=== PATIENT | male | born 1955 | race African-American/Black ===

== ENCOUNTER 2018-05-07 10:37 | Emergency (ER) | payer OTHER ==
[2018-05-07 10:45] VITALS: TEMP 36.7; Ht 167.6 cm
[2018-05-07] MEDS ORDERED: SODIUM CHLORIDE 0.9% 1000ML 1,000 ML IV STA (11:01)
[2018-05-07] MEDS ORDERED: ONDANSETRON INJ 2 MG/ML 2 ML VIAL IV STA (11:01)
[2018-05-07] MEDS ORDERED: MoRPHine SULFATE 2 MG/ML CARP IV STA (11:01)
[2018-05-07] MEDS ORDERED: SODIUM CHLORIDE 0.9% 500ML 500 ML IV STA (11:01)
--- NOTE | 2018-05-07 11:06 | EMERGENCY ROOM VISIT NOTE ---
History Report prepared by [place]: Beena Grijalva Under the Supervision of: Dr. Alexandra Matson M.D. First contact with patient: 10:49 Chief Complaint: ABDOMINAL PAIN Stated Complaint: VOMITING,ABDOMINAL PAIN History of Present Illness The patient is a 62 year old male who presents to the Emergency Room with complaints of persistent vomiting beginning recently. He notes he was due for emergency hernia surgery with Dr. Temple yesterday, but missed the surgery as he was recently incarcerated. The patient reports he has a history of hernias and has needed surgical repairs in the past, and his current symptoms feel similar to those past hernias. He states he is vomiting and having bowel movements at the same time, and his symptoms are worsening every day. He reports his bowel movements begin solid but become diarrhea as the day goes on. The patient notes he began throwing up bile recently and he has difficulty walking due to his pain. He denies a history of diabetes or other medical problems. Source of History: patient Onset: recently Position: abdomen Quality: other (vomiting) Timing: worsening, other (persistent) Associated Symptoms: + abdominal pain Note: Associated symptoms: frequent bowel movements, difficulty walking Review of Systems See HPI for pertinent positives & negatives. A total of 10 systems reviewed and were otherwise negative. Past Medical & Surgical Surgical Problems: (1) History of hernia surgery Vomiting and diarrhea Family History No pertinent family history stated. Social History Smoking Status: Never Smoker Housing Status: other ([facility]) Occupation Status: other (inmate) Physical Exam Vital Signs Date Time Temp Pulse Resp B/P (MAP) Pulse Ox O2 Delivery O2 Flow Rate FiO2 05/07/18 14:25 64 16 125/72 98 05/07/18 13:22 62 16 130/76 100 Room Air 05/07/18 12:21 65 16 146/93 100 Room Air 05/07/18 12:11 57 05/07/18 11:23 66 16 144/94 98 Room Air 05/07/18 10:45 36.7 83 18 111/80 99 Room Air Physical Exam Vital signs reviewed. General: Well-appearing man, in no significant distress. HEENT: No scleral icterus, PERRLA, neck supple. Atraumatic. Cardiovascular: Regular rate and rhythm, no extra sounds. Pulmonary: Clear to auscultation bilaterally, normal work of breathing. Abdomen: Soft, nontender, nondistended, positive bowel sounds. No appreciable inguinal hernia bilaterally. Epigastric rectus sheath defect without bulge. Musculoskeletal: Atraumatic, no peripheral edema. Neurologic: Patient awake alert and oriented x 3 Skin: Warm, dry, no rash Medical Decision & Procedures ER Provider Diagnostic Interpretation: Radiology results as stated below per my review and radiologist interpretation: CT ABD/PELVIS IV AND ORAL CONT CLINICAL HISTORY: Vomiting, hiatal hernia. Possible small bowel obstruction. COMPARISON STUDY: None. TECHNIQUE: Following the IV administration of 119 mL of Optiray-320, CT scan of the abdomen and pelvis was performed from the lung bases to the proximal femurs. Images are reviewed in the axial, sagittal, and coronal planes. IV contrast was administered without complication. A dose lowering technique was utilized adhering to the principles of ALARA. CT DOSE: 225.52 mGycm FINDINGS: Lower chest: There is pulmonary emphysema. Liver: The contrast-enhanced liver is normal in size, contour, and attenuation. There is no intrahepatic biliary ductal dilatation. The hepatic veins and portal veins are patent. Gallbladder: Unremarkable. Spleen: Normal in size and attenuation. Pancreas: There is mild pancreatic ductal dilatation. There is no common bile duct dilatation. No pancreatic masses are visualized on CT scanning. Adrenal glands: Unremarkable. Kidneys: There is symmetric renal cortical enhancement. The kidneys are normal in size without hydronephrosis. Bowel: There are no transition zones to indicate bowel obstruction. There is a moderate amount of stool present within the left colon. There is no acute diverticulitis. The appendix is difficult to visualize with certainty. There are no findings to indicate acute appendicitis. Peritoneum: There is no intraperitoneal free air or abdominal ascites. There is rectus diastases. Vasculature: The abdominal aorta is normal in course and caliber. Adenopathy: None. Pelvic viscera: The bladder, and pelvic viscera are unremarkable. Skeletal structures: No destructive osseous lesions are seen. IMPRESSION: 1. No evidence of bowel obstruction. No evidence of free air 2. Rectus diastases 3. Moderate left colonic stool 4. No acute inflammatory changes 5. Mild pancreatic ductal dilatation. No evidence of common bile duct dilatation. No pancreatic masses are visualized on CT scanning. Electronically signed by: Randal Byers M.D. 05/07/2018 1:45 PM Dictated Date/Time: 05/07/2018 1:40 PM Laboratory Results 05/07/18 11:14 Red Blood Count 5.76, Mean Corpuscular Volume 84.9, Mean Corpuscular Hemoglobin 29.3, Mean Corpuscular Hemoglobin Concent 34.6, Mean Platelet Volume 9.1, Neutrophils (%) (Auto) 76.0, Lymphocytes (%) (Auto) 17.6, Monocytes (%) (Auto) 5.2, Eosinophils (%) (Auto) 0.4, Basophils (%) (Auto) 0.3, Neutrophils # (Auto) 10.43, Lymphocytes # (Auto) 2.41, Monocytes # (Auto) 0.72, Eosinophils # (Auto) 0.05, Basophils # (Auto) 0.04 05/07/18 11:14 Test 05/07/18 11:14 05/07/18 12:21 White Blood Count 13.72 K/uL (4.8-10.8) Red Blood Count 5.76 M/uL (4.7-6.1) Hemoglobin 16.9 g/dL (14.0-18.0) Hematocrit 48.9 % (42-52) Mean Corpuscular Volume 84.9 fL (80-100) Mean Corpuscular Hemoglobin 29.3 pg (25-34) Mean Corpuscular Hemoglobin Concent 34.6 g/dl (32-36) Platelet Count 256 K/uL (130-400) Mean Platelet Volume 9.1 fL (7.4-10.4) Neutrophils (%) (Auto) 76.0 % Lymphocytes (%) (Auto) 17.6 % Monocytes (%) (Auto) 5.2 % Eosinophils (%) (Auto) 0.4 % Basophils (%) (Auto) 0.3 % Neutrophils # (Auto) 10.43 K/uL (1.4-6.5) Lymphocytes # (Auto) 2.41 K/uL (1.2-3.4) Monocytes # (Auto) 0.72 K/uL (0.11-0.59) Eosinophils # (Auto) 0.05 K/uL (0-0.5) Basophils # (Auto) 0.04 K/uL (0-0.2) RDW Standard Deviation 39.2 fL (36.4-46.3) RDW Coefficient of Variation 12.8 % (11.5-14.5) Immature Granulocyte % (Auto) 0.5 % Immature Granulocyte # (Auto) 0.07 K/uL (0.00-0.02) Anion Gap 5.0 mmol/L (3-11) Estimated GFR () 75.1 Estimated GFR (Non- 64.8 BUN/Creatinine Ratio 16.5 (10-20) Calcium Level 9.9 mg/dl (8.5-10.1) Magnesium Level 2.6 mg/dl (1.8-2.4) Total Bilirubin 0.6 mg/dl (0.2-1) Direct Bilirubin 0.2 mg/dl (0-0.2) Aspartate Amino Transf (AST/SGOT) 26 U/L (15-37) Alanine Aminotransferase (ALT/SGPT) 51 U/L (12-78) Alkaline Phosphatase 114 U/L (45-117) Total Protein 8.1 gm/dl (6.4-8.2) Albumin 4.4 gm/dl (3.4-5.0) Lipase 273 U/L (73-393) Urine Color YELLOW Urine Appearance CLEAR (CLEAR) Urine pH 7.0 (4.5-7.5) Urine Specific [place] 1.014 (1.000-1.030) Urine Protein NEG (NEG) Urine Glucose (UA) NEG (NEG) Urine Ketones NEG (NEG) Urine Occult Blood NEG (NEG) Urine Nitrite NEG (NEG) Urine Bilirubin NEG (NEG) Urine Urobilinogen NEG (NEG) Urine Leukocyte Esterase NEG (NEG) Laboratory results per my review. Medications Administered Medications (Trade) Dose Ordered Sig/Avril Route Start Time Stop Time Status Last Admin Dose Admin Sodium Chloride 500 ml @ 999 mls/hr Q31M STAT IV 05/07/18 11:01 05/07/18 11:31 DC 05/07/18 11:24 999 MLS/HR Sodium Chloride 1,000 ml @ 150 mls/hr Q6H40M STAT IV 05/07/18 11:01 05/07/18 14:46 DC 05/07/18 11:24 150 MLS/HR Ondansetron HCl (Zofran Inj) 4 mg NOW STAT IV 05/07/18 11:01 05/07/18 11:06 DC 05/07/18 11:24 4 MG Morphine Sulfate (MoRPHine SULFATE INJ) 2 mg NOW STAT IV 05/07/18 11:01 05/07/18 11:06 DC 05/07/18 11:24 2 MG Hydromorphone HCl (Dilaudid Inj) 0.5 mg NOW STAT IV 05/07/18 13:19 05/07/18 13:20 DC 05/07/18 13:24 0.5 MG ED Course 1053: Past medical records reviewed. The patient was evaluated in room C6. A complete history and physical examination was performed. 1155: I reviewed the patient's medical records, which revealed a bilateral inguinal surgical repair planned for yesterday with Dr. Temple. 1348: Upon reevaluation, the patient appeared to have improvement of his symptoms. I discussed findings with him. He verbalized agreement of the treatment plan. The patient was discharged back to [facility]. Medical Decision Differential diagnosis: Etiologies such as gastroenteritis, food borne illness, infections, appendicitis , diverticulitis, inflammatory bowel disease, obstruction, GI bleed, biliary pathology, as well as others were entertained. This patient was evaluated and appeared to be in no significant distress. IV access was obtained and laboratory work was drawn. He was given 2 mg of IV morphine, 4 mg of Zofran and hydrated with normal saline solution. Laboratory work is fairly unrevealing. Physical examination reveals a defect along the rectus sheath midline. CT imaging of the abdomen was performed and reveals no evidence of active inguinal hernia or small bowel obstruction. There is a rectus diastases. Records from [facility] were obtained and confirm the patient' s story that he was to have surgery yesterday. There is no need for urgent intervention. He was advised to establish care with the [facility] physician and have a referral back to surgery to reschedule the appointment. There has been no further vomiting or diarrhea in the emergency department. He will return to the ED for worsening of symptoms or any medical concerns. Medication Reconcilliation Current Medication List: was personally reviewed by me Blood Pressure Screening Patient's blood pressure: Normal blood pressure Blood pressure disposition: Did not require urgent referral Impression Primary Impression: Vomiting and diarrhea Additional Impressions: Bilateral inguinal hernia Rectus diastasis Scribe Attestation The scribe's documentation has been prepared under my direction and personally reviewed by me in its entirety. I confirm that the note above accurately reflects all work, treatment, procedures, and medical decision making performed by me. Departure Information Dispostion Other ([facility]) Referrals No Doctor, Assigned (PCP) Forms Call Back Authorization, HOME CARE DOCUMENTATION FORM, IMPORTANT VISIT INFORMATION Patient Instructions My [facility] [place] Additional Instructions Diagnosis: Vomiting and diarrhea Please drink plenty of clear fluids. Follow-up with your surgeon to reschedule your elective procedure. Return to the ED for worsening of symptoms or any medical concerns. Problem Qualifiers
[2018-05-07] MEDS ORDERED: OPTIRAY 320 IV PRN (11:15)
[2018-05-07 11:32] LABS: BASO % 0.3 %; BASO ABS # 0.04 K/uL (0-0.2); EOS % 0.4 %; EOS ABS # 0.05 K/uL (0-0.5); HEMATOCRIT 48.9 % (42-52); HEMOGLOBIN 16.9 g/dL (14.0-18.0); IG# 0.07 K/uL (0.00-0.02); LYMPH % 17.6 %; LYMPH ABS # 2.41 K/uL (1.2-3.4); MEAN CELL VOLUME 84.9 fL (80-100); MEAN CORPUSCULAR HEMOGLOBIN 29.3 pg (25-34); MEAN CORPUSCULAR HGB CONC 34.6 g/dl (32-36); MEAN PLATELET VOLUME 9.1 fL (7.4-10.4); MONO % 5.2 %; MONO ABS # 0.72 K/uL (0.11-0.59); NEUT ABS # 10.43 K/uL (1.4-6.5); PLATELET COUNT 256 K/uL (130-400); RED CELL DISTRIBUTION WIDTH CV 12.8 % (11.5-14.5); RED CELL DISTRIBUTION WIDTH SD 39.2 fL (36.4-46.3); WHITE BLOOD COUNT 13.72 K/uL (4.8-10.8)
[2018-05-07 11:53] LABS: BLOOD UREA NITROGEN 20 mg/dl (7-18); CREATININE 1.18 mg/dl (0.60-1.40); GLUCOSE 133 mg/dl (70-99)
[2018-05-07 11:54] LABS: ALBUMIN 4.4 gm/dl (3.4-5.0); ALKALINE PHOSPHATASE 114 U/L (45-117); ALT/SGPT 51 U/L (12-78); AST/SGOT 26 U/L (15-37); CALCIUM 9.9 mg/dl (8.5-10.1); CARBON DIOXIDE 32 mmol/L (21-32); LIPASE 273 U/L (73-393); SODIUM 138 mmol/L (136-145); TOTAL PROTEIN 8.1 gm/dl (6.4-8.2)
[2018-05-07] MEDS ORDERED: HYDROmorphone INJ 0.5 MG/0.5 ML SYR IV STA (13:19)
--- NOTE | 2018-05-07 13:47 | DIAGNOSTIC IMAGING REPORT ---
CT ABD/PELVIS IV AND ORAL CONT CLINICAL HISTORY: Vomiting, hiatal hernia. Possible small bowel obstruction. COMPARISON STUDY: None. TECHNIQUE: Following the IV administration of 119 mL of Optiray-320, CT scan of the abdomen and pelvis was performed from the lung bases to the proximal femurs. Images are reviewed in the axial, sagittal, and coronal planes. IV contrast was administered without complication. A dose lowering technique was utilized adhering to the principles of ALARA. CT DOSE: 225.52 mGycm FINDINGS: Lower chest: There is pulmonary emphysema. Liver: The contrast-enhanced liver is normal in size, contour, and attenuation. There is no intrahepatic biliary ductal dilatation. The hepatic veins and portal veins are patent. Gallbladder: Unremarkable. Spleen: Normal in size and attenuation. Pancreas: There is mild pancreatic ductal dilatation. There is no common bile duct dilatation. No pancreatic masses are visualized on CT scanning. Adrenal glands: Unremarkable. Kidneys: There is symmetric renal cortical enhancement. The kidneys are normal in size without hydronephrosis. Bowel: There are no transition zones to indicate bowel obstruction. There is a moderate amount of stool present within the left colon. There is no acute diverticulitis. The appendix is difficult to visualize with certainty. There are no findings to indicate acute appendicitis. Peritoneum: There is no intraperitoneal free air or abdominal ascites. There is rectus diastases. Vasculature: The abdominal aorta is normal in course and caliber. Adenopathy: None. Pelvic viscera: The bladder, and pelvic viscera are unremarkable. Skeletal structures: No destructive osseous lesions are seen. IMPRESSION: 1. No evidence of bowel obstruction. No evidence of free air 2. Rectus diastases 3. Moderate left colonic stool 4. No acute inflammatory changes 5. Mild pancreatic ductal dilatation. No evidence of common bile duct dilatation. No pancreatic masses are visualized on CT scanning. Electronically signed by: Randal Byers M.D. 05/07/2018 1:45 PM Dictated Date/Time: 05/07/2018 1:40 PM
[2018-05-07 14:25] VITALS: BP 125/72; PULSE 64; O2SAT 98
== END 2018-05-07 14:25 ==
LOC: C.EDB 10:39 → C.EDC 14:25
DX: R11.10 Vomiting, unspecified (principal); R19.7 Diarrhea, unspecified; R10.9 Unspecified abdominal pain; K40.90 Unilateral inguinal hernia, without obstruction or gangrene, not specified as recurrent; M62.08 Separation of muscle (nontraumatic), other site